=== PATIENT | female | born 1960 ===

== ENCOUNTER 2022-02-10 11:15 | Inpatient (IN) | payer OTHER ==
[~2022-02-10] VITALS: Ht 154.9 cm; Wt 60.8 kg
[2022-02-10] MEDS ORDERED: D3 + K2 DOTS 11 EACH PO (12:46)
[2022-02-10] MEDS ORDERED: LOTREL 10-40 M1 EACH PO (12:46)
[2022-02-10] MEDS ORDERED: MAGNESIUM500 MG PO (12:47)
[2022-02-10] MEDS ORDERED: FOSAMAX70 MG PO (12:47)
[2022-02-10] MEDS ORDERED: LIPITOR20 MG PO (12:47)
[2022-02-12] MEDS ORDERED: AMLODIPINE-BEN1 EACH (07:58)
[2022-02-12] MEDS ORDERED: FAMOTIDINE20 MG (07:58)
[2022-02-12] MEDS ORDERED: ATORVASTATIN CA10 MG (07:58)
== END 2022-02-15 19:41 | disposition home or self-care (01) | DRG 331 ==
LOC: SURH 02-12 06:38 → O/R 02-12 06:38 → SURG 02-12 09:00 → SURH 02-12 15:17
PROVIDERS: ADMIT Colon & Rectal Surgery; ATTEND Colon & Rectal Surgery
PROC: 0DBP4ZZ Excision of Rectum, Percutaneous Endoscopic Approach (ICD-10-PCS; 2022-02-12)
PROC: 07BC4ZZ Excision of Pelvis Lymphatic, Percutaneous Endoscopic Approach (ICD-10-PCS; 2022-02-12)
PROC: 0DJD8ZZ Inspection of Lower Intestinal Tract, Via Natural or Artificial Opening Endoscopic (ICD-10-PCS; 2022-02-12)
PROC: 0DTN4ZZ Resection of Sigmoid Colon, Percutaneous Endoscopic Approach (ICD-10-PCS; principal; 2022-02-12 09:00)
DX: C19 Malignant neoplasm of rectosigmoid junction (principal); Z20.822 Contact with and (suspected) exposure to COVID-19